=== PATIENT | female | born 1955 | race Caucasian/White ===

== ENCOUNTER 2018-02-07 05:42 | Emergency (ER) | payer OTHER ==
[~2018-02-07] VITALS: Ht 162.6 cm; Wt 95.1 kg
[2018-02-07] MEDS ORDERED: ONDANSETRON ODT 4 MG ONE (06:16)
[2018-02-07] MEDS ORDERED: KETOROLAC 30 MG/1 ML ONE (06:17)
[2018-02-07] MEDS ORDERED: OXYcodone/APAP 5/325MG TABLET ONE (06:17)
[2018-02-07] MEDS ORDERED: KETOROLAC 30 MG/1 ML IM ONE (06:30)
[2018-02-07] MEDS ORDERED: OXYcodone/APAP 5/325MG TABLET PO ONE (06:30)
[2018-02-07] MEDS ORDERED: ONDANSETRON ODT 4 MG PO PRN (06:30)
[2018-02-07 06:32] LABS: BASOPHILS # (AUTO) 0.01 x10^3/uL (0-0.1); BASOPHILS % (AUTO) 0 % (0-1); EOSINOPHILS % (AUTO) 1 % (1-7); LYMPHOCYTES # (AUTO) 1.42 x10^3/uL (1-3.4); LYMPHOCYTES % (AUTO) 10 % (22-44); MD NO; MEAN CORPUSCULAR HEMOGLOBIN 32.1 pg (27.0-34.8); MEAN CORPUSCULAR HGB CONC 34.4 g/dL (32.4-35.8); MEAN CORPUSCULAR VOLUME 93.1 fL (80-100); MEAN PLATELET VOLUME 8.3 fL (7.4-10.4); MONOCYTES # (AUTO) 0.51 x10^3/uL (0.2-0.8); MONOCYTES % (AUTO) 4 % (2-9); NEUTROPHILS # (AUTO) 12.51 x10^3/uL (1.8-6.8); NEUTROPHILS % (AUTO) 86 % (42-75); PLATELET COUNT 311 x10^3/uL (130-400); RED BLOOD COUNT 4.84 x10^6/uL (3.82-5.3); RED CELL DISTRIBUTION WIDTH 13.8 % (9.6-15.2)
[2018-02-07 06:41] LABS: MICROSCOPIC INDICATED
[2018-02-07 06:42] LABS: CULTURE INDICATED? YES
[2018-02-07 06:44] LABS: ALBUMIN 3.6 g/dL (3.4-5.0); ANION GAP 9 mmol/L (5-15); CALCIUM 8.7 mg/dL (8.5-10.1); CHLORIDE 106 mmol/L (98-107); CREATININE 0.83 mg/dL (0.55-1.02)
[2018-02-07 08:15] VITALS: BP 136/85
== END 2018-02-07 08:17 | disposition home or self-care (01) ==
LOC: ED 08:08
DX: N13.2 Hydronephrosis with renal and ureteral calculous obstruction (principal); Z90.49 Acquired absence of other specified parts of digestive tract
CPT/HCPCS: 36415; 74176; 80048; 81001; 82040; 85025; 87086; 96372; 99285; J1885; Q0162

== ENCOUNTER 2018-02-09 12:34 | Observation (INO) | payer OTHER ==
[~2018-02-09] VITALS: Ht 162.6 cm; Wt 96.7 kg
[2018-02-09] MEDS ORDERED: ONDANSETRON ODT 4 MG PO ONE (13:00)
[2018-02-09 13:30] LABS: BASOPHILS # (AUTO) 0.07 x10^3/uL (0-0.1); BASOPHILS % (AUTO) 1 % (0-1); EOSINOPHILS # (AUTO) 0.06 x10^3/uL (0-0.4); EOSINOPHILS % (AUTO) 1 % (1-7); LYMPHOCYTES # (AUTO) 1.61 x10^3/uL (1-3.4); LYMPHOCYTES % (AUTO) 13 % (22-44); MD NO; MEAN CORPUSCULAR HEMOGLOBIN 31.2 pg (27.0-34.8); MEAN CORPUSCULAR HGB CONC 33.2 g/dL (32.4-35.8); MEAN CORPUSCULAR VOLUME 93.9 fL (80-100); MEAN PLATELET VOLUME 8.3 fL (7.4-10.4); MONOCYTES # (AUTO) 1.13 x10^3/uL (0.2-0.8); MONOCYTES % (AUTO) 9 % (2-9); NEUTROPHILS % (AUTO) 77 % (42-75); PLATELET COUNT 327 x10^3/uL (130-400); RED BLOOD COUNT 4.82 x10^6/uL (3.82-5.3); RED CELL DISTRIBUTION WIDTH 13.5 % (9.6-15.2)
[2018-02-09 13:38] LABS: ALBUMIN 3.4 g/dL (3.4-5.0); ANION GAP 7 mmol/L (5-15); CALCIUM 8.7 mg/dL (8.5-10.1); CHLORIDE 105 mmol/L (98-107)
[2018-02-09] MEDS ORDERED: DEXAMETHASONE 4 MG/ML, 1ML ONE (15:03)
[2018-02-09] MEDS ORDERED: hydrALAzine 20 MG/ML, 1ML IVPush PRN (17:00)
[2018-02-09] MEDS ORDERED: LABETALOL 5MG/ML, 20ML IVPush PRN (17:00)
[2018-02-09] MEDS ORDERED: morphine SULFATE 10 MG/ML, 1ML IVPush PRN (17:00)
[2018-02-09] MEDS ORDERED: ONDANSETRON ODT 4 MG PO PRN (17:00)
[2018-02-09] MEDS ORDERED: ACETAMINOPHEN 325 MG TABLET PO PRN ×2 (17:00→18:00)
[2018-02-09] MEDS ORDERED: DOCUSATE 100 MG CAPSULE PO PRN (17:00)
[2018-02-09] MEDS ORDERED: GABAPENTIN 300 MG CAPSULE PO PRN (17:00)
[2018-02-09] MEDS ORDERED: ONDANSETRON 2MG/ML, 2ML IVPush PRN (17:00)
[2018-02-09] MEDS ORDERED: HYDROcodone/APAP 5/325 TABLET PO PRN (17:00)
[2018-02-09] MEDS ORDERED: MIDAZOLAM 1 MG/ML, 2ML ONE (17:16)
[2018-02-09] MEDS ORDERED: FENTANYL PF 250 MCG/5ML ONE (17:16)
[2018-02-09] MEDS ORDERED: PROPOFOL 10 MG/ML, 20ML ONE (17:17)
[2018-02-09] MEDS ORDERED: ROCURONIUM 10MG/ML,5ML ONE (17:18)
[2018-02-09] MEDS ORDERED: CEFAZOLIN 1,000 MG ONE ×2 (17:46)
[2018-02-09] MEDS ORDERED: LABETALOL 5MG/ML, 20ML IV PRN (18:00)
[2018-02-09] MEDS ORDERED: HYDROmorphone 1 MG/ML, 1ML IV PRN (18:00)
[2018-02-09] MEDS ORDERED: MEPERIDINE/PF 25MG/0.5ML IVPush PRN (18:00)
[2018-02-09] MEDS ORDERED: FENTANYL PF 100 MCG/2ML IV PRN (18:00)
[2018-02-09] MEDS ORDERED: HALOPERIDOL 5 MG/ML IV PRN (18:00)
[2018-02-09] MEDS ORDERED: OXYcodone 5 MG/5 ML ORAL.SOL UDC PO PRN (18:00)
[2018-02-09] MEDS ORDERED: hydrALAzine 20 MG/ML, 1ML IV PRN (18:00)
[2018-02-09] MEDS ORDERED: ONDANSETRON 2MG/ML, 2ML IV PRN (18:00)
[2018-02-09] MEDS ORDERED: KETOROLAC 30 MG/1 ML ONE (18:02)
[2018-02-09] MEDS ORDERED: ONDANSETRON 2MG/ML, 2ML ONE (18:02)
[2018-02-09] MEDS ORDERED: OXYcodone 5 MG/5 ML ORAL.SOL UDC ONE (18:56)
[2018-02-09 22:31] VITALS: BP 127/82
[2018-02-10 00:04] VITALS: BP 104/68
[2018-02-10 03:39] LABS: CULTURE INDICATED? YES; MICROSCOPIC INDICATED
[2018-02-10 04:12] VITALS: BP 100/68
[2018-02-10 05:23] LABS: BASOPHILS # (AUTO) 0.02 x10^3/uL (0-0.1); BASOPHILS % (AUTO) 0 % (0-1); EOSINOPHILS % (AUTO) 0 % (1-7); LYMPHOCYTES # (AUTO) 1.15 x10^3/uL (1-3.4); LYMPHOCYTES % (AUTO) 12 % (22-44); MD NO; MEAN CORPUSCULAR HEMOGLOBIN 31.9 pg (27.0-34.8); MEAN CORPUSCULAR HGB CONC 33.9 g/dL (32.4-35.8); MEAN CORPUSCULAR VOLUME 93.9 fL (80-100); MEAN PLATELET VOLUME 8.6 fL (7.4-10.4); MONOCYTES # (AUTO) 0.63 x10^3/uL (0.2-0.8); MONOCYTES % (AUTO) 6 % (2-9); NEUTROPHILS # (AUTO) 8.11 x10^3/uL (1.8-6.8); NEUTROPHILS % (AUTO) 82 % (42-75); PLATELET COUNT 304 x10^3/uL (130-400); RED BLOOD COUNT 4.34 x10^6/uL (3.82-5.3); RED CELL DISTRIBUTION WIDTH 12.9 % (9.6-15.2)
[2018-02-10 05:30] LABS: ANION GAP 8 mmol/L (5-15); CALCIUM 8.4 mg/dL (8.5-10.1); CHLORIDE 107 mmol/L (98-107); CREATININE 0.93 mg/dL (0.55-1.02)
[2018-02-10 07:04] VITALS: BP 101/64
[2018-02-10] MEDS ORDERED: ACET325T14 PO (10:51)
[2018-02-10] MEDS ORDERED: ONDA4TAB13 PO (10:51)
== END 2018-02-10 11:55 | disposition home or self-care (01) ==
LOC: OR 16:02 → EDIP 16:38 → 4NOR 19:33 → DCLOUNGE 02-10 11:42
PROVIDERS: ADMIT Internal Medicine; ATTEND Internal Medicine
DX: N13.2 Hydronephrosis with renal and ureteral calculous obstruction (principal); N17.9 Acute kidney failure, unspecified; D72.829 Elevated white blood cell count, unspecified; I16.0 Hypertensive urgency; Z87.19 Personal history of other diseases of the digestive system; K59.00 Constipation, unspecified; Z98.51 Tubal ligation status; Z87.440 Personal history of urinary (tract) infections; Z87.442 Personal history of urinary calculi
CPT/HCPCS: 36415; 52353; 74018; 76000; 76770; 80048; 81001; 82040; 83605; 85025; 87086; 93005; 99285; C1758; C1769; G0378; J0690; J1100; J1885; J2250; J2405; J2704; J3010